=== PATIENT | male | born 1940 | race Caucasian/White ===

== ENCOUNTER 2019-12-11 20:13 | Emergency (ER) | payer OTHER, SELFPAY ==
--- NOTE | 2019-12-11 21:37 | RAD REPORT ---
EXAM DESCRIPTION: Josué Pa And Lat (2 Views)12/11/2019 9:10 pm CLINICAL HISTORY: cough COMPARISON: none FINDINGS: 9 mm nodular opacity right lung base. Area of subsegmental atelectasis or scarring within the left upper lobe The heart is mildly enlarged. Pacemaker leads are in place. IMPRESSION: 9 millimeter nodular opacity right lung base likely either represents a nipple shadow or pulmonary nodule. Area of subsegmental atelectasis scarring within the left upper lobe Frontal and oblique views of the chest with right nipple marker recommended
[2019-12-11] MEDS ORDERED: ASPIRIN 81 MG CHEWABLE TABLET ONE (21:46)
[2019-12-11] MEDS ORDERED: NA CHLORIDE 0.9% 500 ML ONE (21:47)
[2019-12-11 21:58] LABS: Absolute Lymphocytes (CBC) 0.7 K/uL (0.7-4.9); Basophils % 1.2 % (0-1.3); Lymphocytes % 7.4 % (15.3-44.8); MPV 8.3 fL (7.6-11.3); RBC Red Blood Cell Count 4.62 M/uL (4.33-5.43)
[2019-12-11 22:08] LABS: Protime INR 1.25
[2019-12-11 22:22] LABS: ALT/SGPT 20 U/L (12-78); AST/SGOT 14 U/L (15-37); Albumin 3.3 g/dL (3.4-5.0); Alkaline Phosphatase 84 U/L (45-117); BUN Blood Urea Nitrogen 23 mg/dL (7-18); Bicarbonate 24 mmol/L (21-32); Bilirubin Direct 0.1 mg/dL (0-0.2); Bilirubin Total 0.4 mg/dL (0.2-1.0); Glucose Level 150 mg/dL (74-106); Magnesium 2.2 mg/dL (1.8-2.4); Protein, Total 7.3 g/dL (6.4-8.2); Sodium Level 141 mmol/L (136-145); Troponin I < 0.02 ng/mL (0.0-0.045)
[2019-12-11] MEDS ORDERED: METOPROLOL TAR 25 MG TAB ONE (23:05)
--- NOTE | 2019-12-12 00:51 | EDPHYS ---
Physician Documentation [facility] Name: Armando Elizalde Jr Age: 79 yrs Sex: Male : 1940 Arrival Date: 12/11/2019 Time: 20:20 Bed 19 Private MD: ED Physician Rob Mccabe HPI: 12/10 21:00 This 79 yrs old Male presents to ER via Ambulatory with complaints of Fever, cp Sore Throat, Congestion. 21:00 Associated signs and symptoms: Pertinent positives: chest pain, with cough, fever, sore cp throat, Pertinent negatives: diarrhea, vomiting. 21:00 Onset: The symptoms/episode began/occurred yesterday. cp 21:00 The patient or guardian reports cough, with productive sputum, that is green. Severity cp of symptoms: in the emergency department the symptoms are unchanged despite home interventions. Historical: - Allergies: 20:24 "a bunch of crap"; aj1 - Home Meds: 20:24 patient is unsure what medications he takes [Active]; aj1 - PMHx: 20:24 Pacemaker; CVA; Diabetes - NIDDM; Hypertension; Burr's esophagus; aj1 - PSHx: 20:24 Cholecystectomy; cardiac bypass x6; cardiac stent; knee replacement; aj1 - Immunization history:: Flu vaccine is up to date. - Social history:: Smoking status: Patient denies any tobacco usage or history of. ROS: 21:05 Constitutional: Negative for body aches, fever, poor PO intake. cp 21:05 Eyes: Negative for injury, pain, redness, and discharge. cp 21:05 ENT: Positive for sore throat, Negative for drainage from ear(s), ear pain, difficulty swallowing, difficulty handling secretions. 21:05 Cardiovascular: Positive for chest pain, with cough, Negative for edema, palpitations. 21:05 Respiratory: Positive for cough, with green sputum, shortness of breath, Negative for wheezing. 21:05 Abdomen/GI: Negative for abdominal pain, vomiting, diarrhea, constipation. 21:05 Back: Negative for radiated pain. 21:05 : Negative for urinary symptoms. 21:05 Skin: Negative for rash. 21:05 Neuro: Negative for altered mental status, headache, weakness. 21:05 All other systems are negative. Exam: 21:12 Constitutional: The patient appears in no acute distress, alert, awake, cp non-diaphoretic, non-toxic, well developed, well nourished. 21:12 Head/Face: Normocephalic, atraumatic. cp 21:12 Eyes: Periorbital structures: appear normal, Pupils: equal, round, and reactive to light and accomodation, Extraocular movements: intact throughout, Conjunctiva: normal, no exudate, no injection, Sclera: no appreciated abnormality, Lids and lashes: appear normal, bilaterally. 21:12 ENT: External ear(s): are unremarkable, Ear canal(s): are normal, clear, TM's: bulging, is not appreciated, bilaterally, erythema, is not appreciated, bilaterally, Nose: is normal, Mouth: Lips: moist, Oral mucosa: moist, Posterior pharynx: Airway: no evidence of obstruction, patent, Tonsils: no enlargement, no exudate, swelling, is not appreciated, erythema, that is mild, exudate, is not appreciated. 21:12 Neck: ROM/movement: is normal, is supple, without pain, no range of motions limitations, no meningismus, no nuchal rigidity. 21:12 Chest/axilla: Inspection: normal, Palpation: is normal, no crepitus, no tenderness. 21:12 Cardiovascular: Rate: tachycardic, Rhythm: irregularly irregular, Edema: is not appreciated, JVD: is not appreciated. 21:12 Respiratory: the patient does not display signs of respiratory distress, Respirations: labored breathing, is not present, accessory muscle usage, is absent, intercostal retractions, are absent, Breath sounds: bronchial sounds, that are mild, are heard diffusely, decreased breath sounds, are not appreciated, stridor, is not appreciated, + upper airway congestion. wheezing: is not appreciated. 21:12 Abdomen/GI: Inspection: abdomen appears normal, Bowel sounds: active, all quadrants, Palpation: abdomen is soft and non-tender, in all quadrants. 21:12 Skin: no rash present. 21:12 Neuro: Orientation: to person, place \\T\\ time. Mentation: is normal, Motor: moves all fours, strength is normal. 21:50 ECG was reviewed by the Attending Physician. cp Vital Signs: 20:24 BP 149 / 89; Pulse 116; Resp 20; Temp 99.3; Pulse Ox 96% on R/A; Weight 88.45 kg (R); aj1 Height 5 ft. 8 in. (172.72 cm) (R); Pain 5/10; 23:00 BP 150 / 72; Pulse 97; Resp 18; Pulse Ox 97% on R/A; wh 12/11 00:00 BP 152 / 81; Pulse 94; Resp 18; Pulse Ox 96% on R/A; wh 01:00 BP 156 / 83; Pulse 97; Resp 18; Pulse Ox 96% on R/A; wh 12/10 20:24 Body Mass Index 29.65 (88.45 kg, 172.72 cm) aj1 MDM: 12/10 20:41 Patient medically screened. [place] 21:00 Differential diagnosis: bronchitis, flu, URI, pneumonia. cp 12/11 00:50 Antibiotic administration: The patient is discharged and will get outpatient cp antibiotics, Zithromax, Augmentin. 00:50 Data reviewed: vital signs, nurses notes, lab test result(s), EKG, radiologic studies, cp CT scan. Test interpretation: by ED physician or midlevel provider: ECG. Counseling: I had a detailed discussion with the patient and/or guardian regarding: the historical points, exam findings, and any diagnostic results supporting the discharge/admit diagnosis, lab results, radiology results, the need for outpatient follow up, an brush painter, to return to the emergency department if symptoms worsen or persist or if there are any questions or concerns that arise at home. Response to treatment: the patient's symptoms have markedly improved after treatment, and as a result, I will discharge patient. 12/10 20:55 Order name: Influenza Screen (a \\T\\ B); Complete Time: 21:55 cp 12/10 20:55 Order name: Strep; Complete Time: 21:55 cp 12/10 21:28 Order name: Basic Metabolic Panel; Complete Time: 22:24 cp 12/10 22:24 Interpretation: Normal except: CL 110; GLUC 150; BUN 23; CRE 1.75; GFR 38. cp 12/10 21:28 Order name: CBC with Diff; Complete Time: 22:12 cp 12/10 22:12 Interpretation: Normal except: JEAN PIERRE% 77.9; LYM% 7.4; MN% 12.5. cp 12/10 21:28 Order name: LFT's; Complete Time: 22:24 cp 12/10 21:28 Order name: Magnesium; Complete Time: 22:24 cp 12/10 20:55 Order name: XRAY Chest Pa And Lat (2 Views); Complete Time: 21:55 cp 12/10 21:28 Order name: PT-INR; Complete Time: 22:24 cp 12/10 22:25 Interpretation: Abnormal: PT 14.6. cp 12/10 21:28 Order name: Troponin I; Complete Time: 22:24 cp 12/10 21:44 Order name: Throat Culture EDWA 12/10 22:29 Order name: Thorax Wo Con EDWA 12/10 21:28 Order name: EKG; Complete Time: 21:29 cp 12/10 21:28 Order name: Cardiac monitoring; Complete Time: 21:46 cp 12/10 21:28 Order name: EKG - Nurse/Tech; Complete Time: 21:45 cp 12/10 21:28 Order name: IV Saline Lock; Complete Time: 21:45 cp 12/10 21:28 Order name: Labs collected and sent; Complete Time: 21:45 cp 12/10 21:28 Order name: O2 Per Protocol; Complete Time: 21:45 cp 12/10 21:28 Order name: O2 Sat Monitoring; Complete Time: 21:45 cp EC/11 21:50 Rate is 101 beats/min. Rhythm is irregularly irregular. QRS interval is normal. QT cp interval is normal. T waves are Inverted in leads V2, V3. Interpreted by me. Reviewed by me. Administered Medications: 21:46 Drug: NS 0.9% 500 ml Route: IV; Rate: 500 ml/hr; Site: right antecubital; 12/11 01:13 Follow up: Response: No adverse reaction; IV Status: Completed infusion 12/10 22:02 Not Given (Patient Refused; Pt started already taking Apixaban for Afib): Aspirin Chewable Tablet 324 mg PO once; 81 mg tablets x 4 23:05 Not Given (Patient Refused): Metoprolol 25 mg PO once 12/11 00:54 Drug: Rocephin 1 grams Route: IV; Rate: bolus; Site: right antecubital; 01:06 Follow up: Response: No adverse reaction; IV Status: Completed infusion 00:54 Drug: Zithromax 500 mg Route: PO; 01:06 Follow up: Response: No adverse reaction Disposition: 07:35 Co-signature as Attending Physician, Rob Mccabe MD I agree with the assessment and [place] plan of care. Disposition: 12/12/19 00:50 Discharged to Home. Impression: Pneumonia due to other specified bacteria - left upper lobe. - Condition is Stable. - Discharge Instructions: Community-Acquired Pneumonia, Adult. - Prescriptions for Augmentin 875- 125 mg Oral Tablet - take 1 tablet by ORAL route every 12 hours for 10 days; 20 tablet. Tessalon Perles 100 mg Oral Capsule - take 2 capsule by ORAL route every 8 hours As needed; 20 capsule. Zithromax Z- Vincent 250 mg Oral Tablet - take 1 tablet by ORAL route as directed for 5 days Day 1 - take two (2) tablets one time. Day 2, 3, 4 , 5 take one (1) tablet once daily.; 6 tablet. - Medication Reconciliation Form, Thank You Letter, Antibiotic Education, Prescription Opioid Use form. - Follow up: Private Physician; When: 2 - 3 days; Reason: Recheck today's complaints. - Problem is new. - Symptoms have improved. Signatures: Dispatcher [employer] Nadege Ennis RN RN aj1 Rob Mccabe MD MD cha Page, Corey, PA PA cp Habalo, Winsy Corrections: (The following items were deleted from the chart) 12/10 22:28 21:58 Chest For PE Angio+CT.RAD.BRZ ordered. [facility] 12/11 01:12 00:50 12/12/2019 00:50 Discharged to Home. Impression: Pneumonia due to other specified wh bacteria - left upper lobe. Condition is Stable. Forms are Medication Reconciliation Form, Thank You Letter, Antibiotic Education, Prescription Opioid Use. Follow up: Private Physician; When: 2 - 3 days; Reason: Recheck today's complaints. Problem is new. Symptoms have improved. cp
--- NOTE | 2019-12-12 00:51 | ER ---
Nurse's Notes [facility] Name: Armando Elizalde Jr Age: 79 yrs Sex: Male : 1940 Arrival Date: 12/11/2019 Time: 20:20 Bed 19 Private MD: Diagnosis: Pneumonia due to other specified bacteria-left upper lobe Presentation: 12/10 20:21 Chief complaint: Patient states: "Sore throat started yesterday and got worse, I'm aj1 coughing up crap and I got a fever of 100.3 and I thought I better come in, I've been short of breath". Coronavirus screen: The patient has NOT traveled to a country currently being monitored by the [facility] within the last 14 days. Ebola Screen: Patient denies travel to an Ebola-affected area in the 21 days before illness onset. Risk Assessment: Do you want to hurt yourself or someone else? Patient reports no desire to harm self or others. 20:21 Method Of Arrival: Ambulatory aj 20:21 Acuity: JOHN 3 aj 20:24 Initial Sepsis Screen: Does the patient meet any 2 criteria? HR > 90 bpm. No. Patient's aj1 initial sepsis screen is negative. Does the patient have a suspected source of infection? Yes: Productive cough/pneumonia. 21:50 Onset of symptoms is unknown. Triage Assessment: 20:24 General: Appears in no apparent distress. uncomfortable, Behavior is calm, cooperative, aj1 appropriate for age. Pain: Complains of pain in chest Pain currently is 5 out of 10 on a pain scale. EENT: Reports nasal congestion nasal discharge sore throat. Neuro: Level of Consciousness is awake, alert, obeys commands. Cardiovascular: Patient's skin is warm and dry. Respiratory: Reports shortness of breath cough that is productive, Airway is patent Respiratory effort is even, unlabored, Respiratory pattern is regular, symmetrical. Historical: - Allergies: 20:24 "a bunch of crap"; aj1 - Home Meds: 20:24 patient is unsure what medications he takes [Active]; aj1 - PMHx: 20:24 Pacemaker; CVA; Diabetes - NIDDM; Hypertension; Burr's esophagus; aj1 - PSHx: 20:24 Cholecystectomy; cardiac bypass x6; cardiac stent; knee replacement; aj1 - Immunization history:: Flu vaccine is up to date. - Social history:: Smoking status: Patient denies any tobacco usage or history of. Screenin:45 Abuse screen: Denies threats or abuse. Denies injuries from another. Nutritional wh screening: No deficits noted. Tuberculosis screening: No symptoms or risk factors identified. Fall Risk None identified. Assessment: 21:50 General: Appears in no apparent distress. Behavior is calm, cooperative, appropriate wh for age. Pain: Complains of pain in sore throat. Neuro: Level of Consciousness is awake, alert, obeys commands, Oriented to person, place, time, situation, Appropriate for age. Cardiovascular: Heart tones S1 S2 Rhythm is atrial fibrillation. Respiratory: Reports shortness of breath cough that is Airway is patent Respiratory effort is even, unlabored, Respiratory pattern is regular, symmetrical, Breath sounds are clear bilaterally. GI: Abdomen is flat, non-distended. : No signs and/or symptoms were reported regarding the genitourinary system. EENT: Throat is pink. Derm: Skin is intact, is healthy with good turgor, Skin is pink, warm \\T\\ dry. normal. 23:10 Reassessment: Patient appears in no apparent distress at this time. No changes from previously documented assessment. Patient and/or family updated on plan of care and expected duration. Pain level reassessed. Patient is alert, oriented x 3, equal unlabored respirations, skin warm/dry/pink. 12/11 00:05 Reassessment: Patient appears in no apparent distress at this time. No changes from previously documented assessment. Patient and/or family updated on plan of care and expected duration. Pain level reassessed. Patient is alert, oriented x 3, equal unlabored respirations, skin warm/dry/pink. 01:00 Reassessment: Patient appears in no apparent distress at this time. No changes from previously documented assessment. Patient and/or family updated on plan of care and expected duration. Pain level reassessed. Patient is alert, oriented x 3, equal unlabored respirations, skin warm/dry/pink. Vital Signs: 12/10 20:24 BP 149 / 89; Pulse 116; Resp 20; Temp 99.3; Pulse Ox 96% on R/A; Weight 88.45 kg (R); aj1 Height 5 ft. 8 in. (172.72 cm) (R); Pain 5/10; 23:00 BP 150 / 72; Pulse 97; Resp 18; Pulse Ox 97% on R/A; wh 03 00:00 BP 152 / 81; Pulse 94; Resp 18; Pulse Ox 96% on R/A; wh 01:00 BP 156 / 83; Pulse 97; Resp 18; Pulse Ox 96% on R/A; 12/10 20:24 Body Mass Index 29.65 (88.45 kg, 172.72 cm) [facility] ED Course: 12/10 20:20 Patient arrived in ED. jg7 20:21 Triage completed. aj1 20:24 Arm band placed on. aj1 20:40 Rob Leblanc PA is PHCP. cp 20:40 Rob Mccabe MD is Attending Physician. cp 20:41 Jimbo Leonard is Primary Nurse. 21:09 XRAY Chest Pa And Lat (2 Views) In Process Unspecified. EDMS 21:45 Inserted saline lock: 20 gauge in right antecubital area, using aseptic technique. Blood collected. 21:50 Patient has correct armband on for positive identification. Bed in low position. Call light in reach. Side rails up X 1. Pulse ox on. NIBP on. 22:49 Thorax Wo Con In Process Unspecified. EDMS 12/11 01:05 No provider procedures requiring assistance completed. IV discontinued, intact, wh bleeding controlled, No redness/swelling at site. Administered Medications: 12/10 21:46 Drug: NS 0.9% 500 ml Route: IV; Rate: 500 ml/hr; Site: right antecubital; 12/11 01:13 Follow up: Response: No adverse reaction; IV Status: Completed infusion 12/10 22:02 Not Given (Patient Refused; Pt started already taking Apixaban for Afib): Aspirin Chewable Tablet 324 mg PO once; 81 mg tablets x 4 23:05 Not Given (Patient Refused): Metoprolol 25 mg PO once 12/11 00:54 Drug: Rocephin 1 grams Route: IV; Rate: bolus; Site: right antecubital; 01:06 Follow up: Response: No adverse reaction; IV Status: Completed infusion 00:54 Drug: Zithromax 500 mg Route: PO; 01:06 Follow up: Response: No adverse reaction Outcome: 00:50 Discharge ordered by . cp 01:10 Discharged to home via wheelchair, with family. 01:10 Condition: stable 01:10 Discharge instructions given to patient, family, Instructed on discharge instructions, follow up and referral plans. medication usage, POC Demonstrated understanding of instructions, follow-up care, medications, POC Prescriptions given X 1. 01:12 Patient left the ED. Signatures: Dispatcher [employer] EDNadege Ennis RN RN aj1 Rob Leblanc PA PA cp Habalo, Winsy wh Gutierrez, Jessica jg7
[2019-12-12] MEDS ORDERED: CEFTRIAXONE/SWI 1gm 1 GM/10 ML SYR ONE (00:52)
[2019-12-12] MEDS ORDERED: AZITHROMYCIN 250 MG TAB ONE (00:52)
[2019-12-12 01:31] VITALS: TEMP 99.3; O2SAT 96
[2019-12-12 01:36] VITALS: BP 156/83
--- NOTE | 2019-12-12 08:52 | EKG ---
Test Date: 2019-12-11 Test Time: 21:40:56 Estate Planning Director: PENNIE MEASUREMENT RESULTS: Intervals: Rate: 101 NE: QRSD: 140 QT: 370 QTc: 479 [place]: P: NE: QRS: 198 T: 24 INTERPRETIVE STATEMENTS: Atrial fibrillation with rapid ventricular response Right bundle branch block Abnormal ECG No previous ECG available for comparison Electronically Signed On 12-12-19 08:50:32 CDT by Seven Beverly
--- NOTE | 2019-12-12 10:22 | RAD REPORT ---
EXAM DESCRIPTION: CT - Thorax Margaret Chavez - 12/12/2019 6:27 am CLINICAL HISTORY: The patient is 79 years old and is Male; Cough;Fever TECHNIQUE: Axial computed tomography images of the chest without intravenous contrast. Sagittal an d coronal reformatted images were created and reviewed. This CT exam was performed using one or mor e of the following dose reduction techniques: automated exposure control, adjustment of the mA and/ or kV according to patient size, and/or use of iterative reconstruction technique. COMPARISON: No relevant prior studies available. FINDINGS: LUNGS: Somewhat masslike area of consolidation within the left upper lobe measuring appr oximately 3.5 x 2.8 cm is present. The lungs are otherwise clear. PLEURAL SPACE: Unremarkable. No pneumothorax. No significant effusion. HEART: No cardiomegaly. No pericardial effusion. BONES/JOINTS: Median sternotomy wires are present. Minimal degenerative change of the spine is present. SOFT TISSUES: The soft tissues are normal. VASCULATURE: Atherosclerosis of the aorta is present. No thoracic aortic aneurysm. LYMPH NODES: Unremarkable. No enlarged lymph nodes. TUBES, LINES AND DEVICES: Dual lead left-sided pacemaker is present with the leads in the right atrial appendage and right right ventricle. IMPRESSION: Slightly masslike appearing consolidation within the left upper lobe. While findings sug gest an area of pneumonia, recommend follow-up to resolution to exclude underlying mass. Electronically signed by: Bibiana Andres MD 12/11/2019 11:19 PM CDT Due to temporary technical issues with the PACS/Fluency reporting system, reports are being signed by the in house radiologist as a courtesy to ensure prompt reporting. The interpreting radiologist is f domenicaly responsible for the content of the report.
== END 2019-12-12 01:12 | disposition home or self-care (01) ==
LOC: ER 20:13
DX: J15.8 Pneumonia due to other specified bacteria (principal); I10 Essential (primary) hypertension; E11.9 Type 2 diabetes mellitus without complications; Z95.0 Presence of cardiac pacemaker; Z95.818 Presence of other cardiac implants and grafts
CPT/HCPCS: 96361; 93005; 87070; 85025; 80048; 36415; 83735; 85610; 80076; 87081; 84484; 87804 ×2; 71250; 71046; 96374; 99284; J0696; J7040; 96365; 96366; 96375